=== PATIENT | female | born 1965 | race Caucasian/White ===

== ENCOUNTER 2017-07-25 13:17 | Emergency (ER) | payer OTHER ==
[2017-07-25] MEDS ORDERED: BACIGUENT PACKET TP ONE (13:31)
[2017-07-25] MEDS ORDERED: Adacel Vial IM ONE ×2 (13:31→13:36)
[2017-07-25] MEDS ORDERED: XYLOCAINE 1% HCL 20 ML MDV IJ ONE (13:31)
[2017-07-25] MEDS ORDERED: XYLOCAINE 1% HCL 20 ML MDV ONE (13:36)
[2017-07-25] MEDS ORDERED: BACIGUENT PACKET ONE (13:36)
--- NOTE | 2017-07-25 13:36 | ERPHSYRPT ---
- History of Present Illness Time Seen by Provider: 07/25/17 13:32 Source: patient Exam Limitations: no limitations Patient Subjective Stated Complaint: PT REPORTS TRIPPING IN GARAGE WITH A TOOL IN HER LEFT HAND-LAC TO RIGHT PALM/FINGER AREA Triage Nursing Assessment: PT PINK WARM ET [id number] NOTED TO LEFT PALM- BLEEDING CONTROLLED MINE [employer]-REPORTS FULL SENSATION Occurred: just prior to arrival Method of Injury: other (laceration when fell fell onto tool left hand), fell Severity of Pain-Max: mild Severity of Pain-Current: mild Extremities Pain Location: hand: left Modifying Factors: Improves With: nothing Associated Symptoms: none Allergies/Adverse Reactions: Sulfa (Sulfonamide Antibiotics) Allergy (Severe, Verified 07/25/17 13:32) PASSED OUT/SWELLING Home Medications: Metformin HCl 500 mg [Glucophage 500 MG] 500 mg PO BIDWM 07/25/17 [History ] Sitagliptin Phosphate 50 MG [Januvia 50 MG] 50 mg PO DAILY 07/25/17 [ History] Hx Tetanus, Diphtheria Vaccination/Date Given: No Hx Influenza Vaccination/Date Given: Yes (2016) Hx Pneumococcal Vaccination/Date Given: No Immunizations Up to Date: Yes - Review of Systems Constitutional: No Fever, No Chills Eyes: No Symptoms Ears, Nose, & Throat: No Symptoms Respiratory: No Cough, No Dyspnea Cardiac: No Chest Pain, No Edema, No Syncope Abdominal/Gastrointestinal: No Abdominal Pain, No Nausea, No Vomiting, No Diarrhea Genitourinary Symptoms: No Dysuria Musculoskeletal: Other (laceration volar surface left hand at base of index finger) Skin: Other (2.5 cm laceration left hand base of index finger, volar surface) Neurological: No Dizziness, No Focal Weakness, No Sensory Changes Psychological: No Symptoms Endocrine: No Symptoms All Other Systems: Reviewed and Negative - Past Medical History Pertinent Past Medical History: Yes Endocrine Medical History: Diabetes Type II - Past Surgical History Past Surgical History: Yes Female Surgical History: Hysterectomy - Social History Smoking Status: Never smoker Exposure to second hand smoke: No Drug Use: none Patient Lives Alone: No - Female History Hx Now: No - Nursing Vital Signs Nursing Vital Signs: Initial Vital Signs Temperature 97.9 F 07/25/17 13:26 Pulse Rate 78 07/25/17 13:26 Respiratory Rate 20 07/25/17 13:26 Blood Pressure 147/86 07/25/17 13:26 O2 Sat by Pulse Oximetry 96 07/25/17 13:26 Pain Scale Pain Intensity 7 - Physical Exam General Appearance: mild distress Eyes, Ears, Nose, Throat Exam: moist mucous membranes Neck Exam: non-tender, supple Cardiovascular/Respiratory Exam: chest non-tender, normal breath sounds, regular rate/rhythm, no respiratory distress Abdominal Exam: non-tender, No guarding Back Exam: normal inspection, No vertebral tenderness Shoulder Exam: normal inspection, non-tender, no evidence of injury, normal ROM Elbow/Forearm Exam: normal inspection, non-tender, no evidence of injury, normal ROM Wrist Exam: normal inspection, non-tender, no evidence of injury, normal ROM Hand Exam: laceration (2.5 cm laceration left hand volar surface at base of left index finger) DTR - Upper Extremity Exam: tricep (R): 2+, tricep (L): 2+ Neuro/Tendon Exam: normal sensation, normal motor functions, no evidence tendon injury, No motor deficit Mental Status Exam: alert, oriented x 3, cooperative, other (sensation intact to all extremities) Skin Exam: other (2.5 cm laceration left hand volar surface at base of left index finger, good capillary refill to all fingers) SpO2 Interpretation: normal (96%) SpO2: 96 Oxygen Delivery: Room Air Ordered Tests: Active Orders 24 hr Category Date Time Status Prepare for Sutures STAT Care 07/25/17 13:31 Active Sutures STAT Care 07/25/17 13:32 Active Wound Care STAT Care 07/25/17 13:31 Active Medication Summary Discontinued Medications Generic Name Dose Route Start Last Admin Trade Name Gagandeep PRN Reason Stop Dose Admin Bacitracin 0.9 gm 07/25/17 13:31 Baciguent Packet TP 07/25/17 13:32 STAT ONE Bacitracin Confirm 07/25/17 13:36 Baciguent Packet Administered 07/25/17 13:37 Dose 1 gm .ROUTE .STK-MED ONE Diphtheria/Tetanus/Acell Pertussis 0.5 ml 07/25/17 13:31 Adacel Vial IM 07/25/17 13:32 .ONCE ONE Diphtheria/Tetanus/Acell Pertussis Confirm 07/25/17 13:36 Adacel Vial Administered 07/25/17 13:37 Dose 0.5 ml IM .STK-MED ONE Lidocaine HCl 5 ml 07/25/17 13:31 Xylocaine 1% Hcl 20 Ml Mdv IJ 07/25/17 13:32 STAT ONE Lidocaine HCl Confirm 07/25/17 13:36 Xylocaine 1% Hcl 20 Ml Mdv Administered 07/25/17 13:37 Dose 10 ml .ROUTE .STK-MED ONE - Progress Progress: improved Progress Note: 07/25/17 14:01 Laceration repair 2.5 cm laceration volar surface left hand. Laceration sterilely prepped and draped. Anesthetized with 1% lidocaine. Inspected no foreign bodies noted. Laceration repaired using 7 5. 0 Ethilon sutures (interrupted) Bacitracin and dressing applied - Departure Time of Disposition: 14:02 Departure Disposition: Home Clinical Impression: Laceration of left hand Qualifiers: Encounter type: initial encounter Foreign body presence: without foreign body Qualified Code(s): S61.412A - Laceration without foreign body of left hand, initial encounter Condition: Fair Critical Care Time: No Referrals: DOCTOR,NO FAMILY [Primary Care Provider] - Instructions: Laceration Repair With Stitches (DC) Additional Instructions: Return home. Keep area clean and dry. Bacitracin to area until healed. Sutures out in 5-7 days. Follow-up with your family doctor or return if signs of infection or problems. Return for acute distress or for severe symptoms.
[2017-07-25 14:09] VITALS: BP 145/84; PULSE 79; O2SAT 97
== END 2017-07-25 14:28 | disposition home or self-care (01) ==
LOC: ED 13:17
PROC: 0HQGXZZ Repair Left Hand Skin, External Approach (ICD-10-PCS; principal; 2017-07-25)
DX: S61.412A Laceration without foreign body of left hand, initial encounter (principal); W01.0XXA Fall on same level from slipping, tripping and stumbling without subsequent striking against object, initial encounter; Y93.9 Activity, unspecified; Y92.59 Other trade areas as the place of occurrence of the external cause; E11.9 Type 2 diabetes mellitus without complications; Z79.4 Long term (current) use of insulin; Z23 Encounter for immunization; A35 Other tetanus
CPT/HCPCS: 12001; 90471; 90715; 99283; A9270-GY